=== PATIENT | female | born 1940 | race Hispanic/Latino ===

== ENCOUNTER 2017-10-08 20:20 | Emergency (ER) | payer MEDICARE ==
[2017-10-08 20:30] VITALS: RESP 17; BMI 26.4
--- NOTE | 2017-10-08 21:55 | ED PDOC ---
Arrival/HPI - General Chief Complaint: Trauma Time Seen by Provider: 10/08/17 20:33 Historian: Patient - History of Present Illness Narrative History of Present Illness (Text): 10/08/17 20:40 A 76 year old female, with no significant past medical history, presents to the emergency department complaining of s/p trip and fall. Patient reports while walking outside, tripped over dog and landed forwards onto her face. States left nare was bleeding initially, however no longer is at this time here in the ER. Patient notes no symptoms prior to fall. Patient denies any LOC, blurry/ double vision, or any other complaints. Also, patient mentions she is not on any blood thinners. No PMD Past Medical History - Provider Review Nursing Documentation Reviewed: Yes - Infectious Disease Hx of Infectious Diseases: None - Reproductive Menopause: Yes - Pulmonary Hx Respiratory Disorders: No - Neurological Hx Neurological Disorder: No - HEENT Hx HEENT Disorder: No - Renal Hx Renal Disorder: No - Endocrine/Metabolic Hx Endocrine Disorders: No - Hematological/Oncological Hx Blood Disorders: No - Integumentary Hx Dermatological Disorder: No - Musculoskeletal/Rheumatological Hx Musculoskeletal Disorders: No - Gastrointestinal Hx Gastrointestinal Disorders: No - Genitourinary/Gynecological Hx Genitourinary Disorders: No - Psychiatric Hx Psychophysiologic Disorder: No Hx Substance Use: No - Anesthesia Hx Anesthesia: No Family/Social History - Physician Review Nursing Documentation Reviewed: Yes Family/Social History: No Known Family HX Smoking Status: Never Smoked Hx Alcohol Use: No Hx Substance Use: No Allergies/Home Meds Allergies/Adverse Reactions: Allergies No Known Allergies Allergy (Verified 10/08/17 20:31) Home Medications: Home Meds Medication Instructions Recorded Confirmed Atorvastatin [Lipitor] 1 tab PO DAILY 10/08/17 10/08/17 Review of Systems - Physician Review All systems were reviewed & negative as marked: Yes - Review of Systems Eyes: absent: Vision Changes (no blurry/double vision) Neurological: absent: Other (no LOC) Physical Exam Vital Signs Reviewed: Yes Vital Signs Temp Pulse Resp BP Pulse Ox 10/08/17 20:29 98.3 F 83 17 141/78 97 Temperature: Afebrile Blood Pressure: Normal Pulse: Regular Respiratory Rate: Normal Appearance: Positive for: Well-Appearing Pain Distress: None Mental Status: Positive for: Alert and Oriented X 3 - Systems Exam Head: Present: Other (small hematoma to right eyebrow) Pupils: Present: PERRL Extroacular Muscles: Present: EOMI Conjunctiva: Present: Normal Nose (Internal): Present: Other (dry blood to left nare) Neck: Present: Normal Range of Motion Respiratory/Chest: Present: Clear to Auscultation, Good Air Exchange. No: Respiratory Distress, Accessory Muscle Use Cardiovascular: Present: Regular Rate and Rhythm, Normal S1, S2. No: Murmurs Abdomen: No: Tenderness, Distention, Peritoneal Signs Back: Present: Normal Inspection Upper Extremity: Present: Normal Inspection. No: Cyanosis, Edema Lower Extremity: Present: Normal Inspection. No: Edema Neurological: Present: GCS=15, CN II-XII Intact, Speech Normal Skin: Present: Warm, Dry, Normal Color. No: Rashes Psychiatric: Present: Alert, Oriented x 3, Normal Insight, Normal Concentration Medical Decision Making ED Course and Treatment: 10/08/17 21:43 Impression: 76 year old female with s/p fall injury. Physical exam shows dry blood to left nare; small hematoma to right eyebrow; no other acute findings on examination. Plan: -- Head CT -- Facial/Orbit CT -- Reassess and disposition Progress Notes: - RAD Interpretation Narrative RAD Interpretations (Text): 10/08/17 22:37 IMPRESSION: No CT evidence of acute intracranial abnormality. Evidence of right frontal scalp hematoma/injury. IMPRESSION: Slightly displaced left nasal bone fracture. Correlate clinically if this is an acute injury. Right frontal scalp hematoma/injury. Degenerative changes in the cervical spine. Radiology Orders: 10/08/17 20:43 HEAD W/O CONTRAST [CT] Stat ORBITS/ FACIALS W/O CONTRAST [CT] Stat - Scribe Statement The provider has reviewed the documentation as recorded by the Puja Kessler Provider Scribe Attestation: All medical record entries made by the Scribe were at my direction and personally dictated by me. I have reviewed the chart and agree that the record accurately reflects my personal performance of the history, physical exam, medical decision making, and the department course for this patient. I have also personally directed, reviewed, and agree with the discharge instructions and disposition. Disposition/Present on Arrival - Present on Arrival Any Indicators Present on Arrival: No History of DVT/PE: No History of Uncontrolled Diabetes: No Urinary Catheter: No History of Decub. Ulcer: No History Surgical Site Infection Following: None - Disposition Have Diagnosis and Disposition been Completed?: Yes Diagnosis: Nasal bone fracture Disposition: HOME/ ROUTINE Disposition Time: 22:30 Patient Problems: Current Active Problems Problem Status Onset Nasal bone fracture Acute Condition: GOOD Discharge Instructions (ExitCare): Minor Head Injury (DC), Nose Fracture (DC) Additional Instructions: Thank you for letting us take care of you today. The emergency medical care you received today was directed at your acute symptoms. If you were prescribed any medication, please fill it and take as directed. It may take several days for your symptoms to resolve. Return to the Emergency Department if your symptoms worsen, do not improve, or if you have any other problems. Please contact your doctor or call one of the physicians/clinics you have been referred to that are listed on the Patient Visit Information form that is included in your discharge packet. Bring any paperwork you were given at discharge with you along with any medications you are taking to your follow up visit. Our treatment cannot replace ongoing medical care by a primary care provider (PCP) outside of the emergency department. Thank you for allowing the [facility] team to be part of your care today. Follow up with your doctor 2-3 days for re-evaluation and further management. Referrals: Agapito Emery, [Staff Provider] - Follow up with primary Forms: [employer] ([place] [employer])
--- NOTE | 2017-10-08 22:19 | CT ---
EXAM: CT Head Without Intravenous Contrast CLINICAL HISTORY: 76 years old, female; Injury or trauma; Fall; Initial encounter; Blunt trauma (contusions or hematomas); Consciousness not specified; Additional info: S/P fall - R/O ich FX TECHNIQUE: Axial computed tomography images of the head/brain without intravenous contrast. All CT scans at this facility use one or more dose reduction techniques, viz.: automated exposure control; ma/kV adjustment per patient size (including targeted exams where dose is matched to indication; i.e. head); or iterative reconstruction technique. Coronal and sagittal reformatted images were created and reviewed. COMPARISON: No relevant prior studies available. FINDINGS: Brain: No hemorrhage. No significant white matter disease. No edema. Ventricles: No hydrocephalus. Bones: Skull is intact. Soft tissues: Evidence of right frontal scalp hematoma/injury. Sinuses: No acute sinusitis. Mastoid air cells: No mastoid effusion. IMPRESSION: No CT evidence of acute intracranial abnormality. Evidence of right frontal scalp hematoma/injury.
--- NOTE | 2017-10-08 22:23 | CT ---
EXAM: CT Maxillofacial Without Intravenous Contrast CLINICAL HISTORY: 76 years old, female; Injury or trauma; Fall; Initial encounter; Blunt trauma (contusions or hematomas); Forehead and orbit/periorbital; Bilateral; Additional info: S/P fall - R/O FX TECHNIQUE: Axial computed tomography images of the face without intravenous contrast. All CT scans at this facility use one or more dose reduction techniques, viz.: automated exposure control; ma/kV adjustment per patient size (including targeted exams where dose is matched to indication; i.e. head); or iterative reconstruction technique. Coronal and sagittal reformatted images were created and reviewed. COMPARISON: No relevant prior studies available. FINDINGS: Bones/joints: Slightly displaced left nasal bone fracture. Correlate clinically if this is an acute injury. Degenerative changes in cervical spine. 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 Follow up with dedicated imaging as warranted. Soft tissues: Right frontal scalp hematoma/injury. Correlate clinically. Orbits: No acute abnormality as visualized. Sinuses: No acute abnormality as visualized. No air-fluid levels. IMPRESSION: Slightly displaced left nasal bone fracture. Correlate clinically if this is an acute injury. Right frontal scalp hematoma/injury. Degenerative changes in the cervical spine.
[2017-10-08 22:57] VITALS: BP 140/89; PULSE 72; TEMP 98.2; O2SAT 100
== END 2017-10-08 22:44 | disposition home or self-care (01) ==
LOC: ED 20:20
DX: S02.2XXA Fracture of nasal bones, initial encounter for closed fracture (principal); W01.0XXA Fall on same level from slipping, tripping and stumbling without subsequent striking against object, initial encounter; Y92.89 Other specified places as the place of occurrence of the external cause